=== PATIENT | male | born 1940 | race Caucasian/White ===

== ENCOUNTER → 2018-04-03 | Outpatient (CLI) | payer MEDICARE, OTHER ==
[~2018-04-03] MED LIST: ACET-1600 PO; ACET-1757 PO; ACET650S12 PR; AMIO200T42 PO; AMIO400T5 PO; APIX5TAB PO; ASPI-515 PO; ATOR20TA37 PO; ATOR40TA78 PO; ATROVASTATIN PO; BISA10SU2 PR; BISA5TAB5 PO; CALC-534 PO; CALC-55 PO; CARV-39 PO; CARV25TA12 PO; CHLO25TA PO; CLON0.1T22 PO; DEXT15LI43 PO; DOCU100T3 PO; ENOX40SY4 SQ; FURO-93 PO; FURO40TA6 PO; GLUC1VIA4 IM; HYDR-3245 PO; HYDR-3343 PO; ISOS60TA36 PO; LOSA100T14 PO; LOSA1TAB22 PO; LOSA50TA14 PO; METO10TA2 PO; METO10TA82 PO; METO50TA82 PO; Metoprolol PO; ONDA4TAB7 PO; PANT40TA5 PO; POTA20TA14 PO; POTA20TA89 PO; RIVA15TA PO; TORS20TA PO; TORS20TA2 PO; TRAM50TA2 PO; Tramadol PO; VALS1TAB28 PO; WARF2.5T32 PO; WARF4TAB65 PO; [UNRECOGNIZED DRUG - REMARK] PO; eliquis PO
[2018-04-03 13:30] LABS: ALANINE AMINOTRANSFERASE 18 U/L (12-78); ALBUMIN 3.6 g/dL (3.4-5.0); ANION GAP 9 mmol/L (5-15); CALCIUM 9.1 mg/dL (8.5-10.1); CHLORIDE 102 mmol/L (98-107); CREATININE 1.86 mg/dL (0.7-1.3)
[2018-04-03 13:32] LABS: ALKALINE PHOSPHATASE 73 U/L (45-117); BILIRUBIN,TOTAL 0.6 mg/dL (0.2-1.0); TOTAL PROTEIN 7.9 g/dL (6.4-8.2)
== END | disposition home or self-care (01) ==
LOC: STAR 11:55
PROVIDERS: ATTEND Orthopaedic Surgery
DX: Z01.818 Encounter for other preprocedural examination (principal); M19.011 Primary osteoarthritis, right shoulder
CPT/HCPCS: 36415; 80053; 87081; 93005

== ENCOUNTER 2018-04-18 12:03 | Inpatient (IN) | payer MEDICARE, OTHER ==
[2018-04-03 12:30] VITALS: BP 145/105
[~2018-04-18] VITALS: Ht 182.9 cm; Wt 131.0 kg
[~2018-04-18 12:03] MED LIST changes: +FENTANYL PF 100 MCG/2ML ONE; +MIDAZOLAM 1 MG/ML, 2ML ONE
[2018-04-18] MEDS ORDERED: LACTATED RINGERS 1,000 ML IV SCH (12:17)
[2018-04-18] MEDS ORDERED: ONDANSETRON ODT 8 MG PO ONE (12:30)
[2018-04-18] MEDS ORDERED: ACETAMINOPHEN 500 MG TABLET PO ONE (12:30)
[2018-04-18] MEDS: D5%-0.45% NACL 1,000 ML IV SCH (12:34)
[2018-04-18] MEDS ORDERED: PHENYLEPHRINE 10 MG/ML ONE (12:45)
[2018-04-18] MEDS ORDERED: CLINDAMYCIN 150 MG/ML, 6ML ONE (12:45)
[2018-04-18] MEDS ORDERED: BISACODYL 10 MG SUPP PR PRN (13:00)
[2018-04-18] MEDS ORDERED: ACETAMINOPHEN 325 MG TABLET PO PRN (13:00)
[2018-04-18] MEDS ORDERED: HYDROmorphone 1 MG/ML, 1ML IV PRN (13:00)
[2018-04-18] MEDS ORDERED: MAGNESIUM HYDROXIDE 8%, 30ML UDC PO PRN (13:00)
[2018-04-18] MEDS ORDERED: HYDROcodone/APAP 10/325 MG TABLET PO PRN (13:00)
[2018-04-18] MEDS ORDERED: KETOROLAC 30 MG/1 ML IV SCH (13:00)
[2018-04-18] MEDS: CEFAZOLIN PMX 2GM/50ML 50 ML IVPB SCH ×2 (13:00→20:50)
[2018-04-18] MEDS ORDERED: ONDANSETRON 2MG/ML, 2ML IV PRN ×2 (13:00→15:30)
[2018-04-18] MEDS ORDERED: SENNA/DOCUSATE TABLET PO PRN (13:00)
[2018-04-18] MEDS ORDERED: BUPIVACAINE/PF 0.25% ONE (13:34)
[2018-04-18] MEDS ORDERED: DEXAMETHASONE 4 MG/ML, 1ML ONE (13:35)
[2018-04-18] MEDS ORDERED: ROCURONIUM 10MG/ML,5ML ONE (13:35)
[2018-04-18] MEDS ORDERED: NEOSTIGMINE 1 MG/ML, 10ML ONE (13:35)
[2018-04-18] MEDS ORDERED: PROPOFOL 10 MG/ML, 20ML ONE (13:35)
[2018-04-18] MEDS ORDERED: GLYCOPYRROLATE 0.2MG/1ML, 5ML ONE (13:35)
[2018-04-18] MEDS ORDERED: SUCCINYLCHOLINE 20 MG/ML, 10ML ONE (13:35)
[2018-04-18] MEDS ORDERED: LIDOCAINE-MPF 2% ,5ML ONE (13:35)
[2018-04-18] MEDS ORDERED: CEFAZOLIN 1,000 MG ONE (13:35)
[2018-04-18] MEDS ORDERED: KETOROLAC 30 MG/1 ML ONE (15:02)
[2018-04-18] MEDS: FENTANYL PF 100 MCG/2ML IV PRN ×2 (15:21→15:28)
[2018-04-18] MEDS ORDERED: OXYcodone 5 MG/5 ML ORAL.SOL UDC PO PRN (15:30)
[2018-04-18] MEDS ORDERED: ALBUTEROL/IPRATROPIUM 2.5MG/0.5MG, 3 ML NPPB PRN (15:30)
[2018-04-18] MEDS ORDERED: HYDROmorphone 2 MG/ML, 1ML IVPush PRN (15:30)
[2018-04-18] MEDS ORDERED: PROMETHAZINE 25 MG/ML, 1ML IV PRN (15:30)
[2018-04-18] MEDS ORDERED: METOPROLOL 1 MG/ML, 5ML IV PRN (15:30)
[2018-04-18] MEDS ORDERED: hydrALAzine 20 MG/ML, 1ML IV PRN (15:30)
[2018-04-18 19:07] VITALS: BP 101/64
[2018-04-18] MEDS: APIXABAN 5 MG TABLET PO SCH (20:47)
[2018-04-18] MEDS: DOCUSATE 100 MG CAPSULE PO SCH (20:47)
[2018-04-18] MEDS: CARVEDILOL 25 MG TABLET PO SCH (20:49)
[2018-04-18] MEDS ORDERED: ATORVASTATIN 20 MG TABLET PO SCH (21:00)
[2018-04-18] MEDS: KETOROLAC 30 MG/1 ML IV SCH (22:59)
[2018-04-19 00:33] VITALS: BP 100/66
[2018-04-19] MEDS: D5%-0.45% NACL 1,000 ML IV SCH (01:01)
[2018-04-19 04:32] VITALS: BP 108/68
[2018-04-19] MEDS: CEFAZOLIN PMX 2GM/50ML 50 ML IVPB SCH (04:38)
[2018-04-19] MEDS ORDERED: KETOROLAC 30 MG/1 ML ONE (06:26)
[2018-04-19] MEDS: KETOROLAC 30 MG/1 ML IV SCH (06:29)
[2018-04-19 07:30] VITALS: BP 126/82
[2018-04-19] MEDS ORDERED: TORSEMIDE 20 MG TABLET PO SCH (09:00)
[2018-04-19] MEDS ORDERED: POTASSIUM CHLORIDE 20 MEQ TAB.ER.PRT PO SCH (09:00)
[2018-04-19] MEDS ORDERED: MULTIVITAMINS/MINERALS TABLET PO SCH (09:00)
[2018-04-19] MEDS: CARVEDILOL 25 MG TABLET PO SCH (09:41)
[2018-04-19] MEDS: APIXABAN 5 MG TABLET PO SCH (09:44)
[2018-04-19] MEDS: DOCUSATE 100 MG CAPSULE PO SCH (09:44)
== END 2018-04-19 10:50 | disposition home or self-care (01) | DRG 483 ==
LOC: ORIP 12:03 → 4NOR 16:12 → DCLOUNGE 04-19 10:36
PROVIDERS: ADMIT Orthopaedic Surgery; ATTEND Orthopaedic Surgery
PROC: 3E0T3BZ Introduction of Anesthetic Agent into Peripheral Nerves and Plexi, Percutaneous Approach (ICD-10-PCS; 2018-04-18)
PROC: 0RRJ00Z Replacement of Right Shoulder Joint with Reverse Ball and Socket Synthetic Substitute, Open Approach (ICD-10-PCS; principal; 2018-04-18 14:00)
DX: M12.811 Other specific arthropathies, not elsewhere classified, right shoulder (principal); I50.22 Chronic systolic (congestive) heart failure; I13.0 Hypertensive heart and chronic kidney disease with heart failure and stage 1 through stage 4 chronic kidney disease, or unspecified chronic kidney disease; I25.10 Atherosclerotic heart disease of native coronary artery without angina pectoris; G47.33 Obstructive sleep apnea (adult) (pediatric); E78.5 Hyperlipidemia, unspecified; N18.3 Chronic kidney disease, stage 3 (moderate); E66.9 Obesity, unspecified; I48.0 Paroxysmal atrial fibrillation; I48.2 Chronic atrial fibrillation; J44.9 Chronic obstructive pulmonary disease, unspecified; J30.2 Other seasonal allergic rhinitis; Z95.1 Presence of aortocoronary bypass graft; Z88.5 Allergy status to narcotic agent; Z95.0 Presence of cardiac pacemaker; Z95.2 Presence of prosthetic heart valve; Z79.01 Long term (current) use of anticoagulants; Z68.39 Body mass index [BMI] 39.0-39.9, adult; Z85.46 Personal history of malignant neoplasm of prostate
CPT/HCPCS: C1713; C1776; G0378; J0690; J1100; J1885; J2250; J2704; J2710; J3010; J3490; Q0162; C1769; J0330; J0360; J2370; J7120

== ENCOUNTER 2018-05-28 16:26 | Emergency (ER) | payer MEDICARE, OTHER ==
[~2018-05-28] VITALS: Ht 182.9 cm; Wt 127.0 kg
[~2018-05-28 16:26] MED LIST changes: -FENTANYL PF 100 MCG/2ML ONE; -MIDAZOLAM 1 MG/ML, 2ML ONE
--- NOTE | 2018-05-28 16:58 | NUR ---
PT BRIA GONCALVES FROM MORNING START ASSISTED LIVING. PT WITH COUGH AND SHORTNESS OF BREATH X 2 DAYS. PT WENT TO [facility] TODAY AND HAD A NEGATIVE CHEST X-RAY. PT A&OX4. IV STARTED IN FIELD BY IVANNA. PT RECEIVED ALBUTEROL X3 AND 2 DUONEB TREATMENTS. PT WITH EXP WHEEZING THROUGHOUT. ASSESSMENT COMPLETED. AWAITING MD. CALL LIGHT IN REACH AND DAUGHTER AT BEDSIDE
--- NOTE | 2018-05-28 17:19 | NUR ---
EKG DONE AND PRESENTED TO
[2018-05-28 17:53] LABS: BASOPHILS # (AUTO) 0.02 x10^3/uL (0-0.1); MD NO
[2018-05-28 18:02] LABS: BASOPHILS % (AUTO) 0 % (0-1); EOSINOPHILS # (AUTO) 0.29 x10^3/uL (0-0.4); EOSINOPHILS % (AUTO) 5 % (1-7); LYMPHOCYTES # (AUTO) 1.09 x10^3/uL (1-3.4); LYMPHOCYTES % (AUTO) 19 % (22-44); MEAN CORPUSCULAR HEMOGLOBIN 30.5 pg (27.5-34.5); MEAN CORPUSCULAR HGB CONC 33.7 g/dL (33.2-36.2); MEAN CORPUSCULAR VOLUME 90.5 fL (81-97); MEAN PLATELET VOLUME 8.4 fL (7.4-10.4); MONOCYTES # (AUTO) 0.87 x10^3/uL (0.2-0.8); MONOCYTES % (AUTO) 15 % (2-9); NEUTROPHILS # (AUTO) 3.62 x10^3/uL (1.8-6.8); NEUTROPHILS % (AUTO) 62 % (42-75); PLATELET COUNT 176 x10^3/uL (130-400)
[2018-05-28 18:15] LABS: ALBUMIN 3.5 g/dL (3.4-5.0); ANION GAP 6 mmol/L (5-15); CALCIUM 9.3 mg/dL (8.5-10.1); CHLORIDE 106 mmol/L (98-107); CREATININE 1.64 mg/dL (0.7-1.3)
[2018-05-28 18:17] LABS: RAPID INFLUENZA A Negative (Negative); RAPID INFLUENZA B Negative (Negative)
--- NOTE | 2018-05-28 18:41 | NUR ---
MD AT BEDSIDE TALKING WITH PT
[2018-05-28 18:52] VITALS: BP 142/91
--- NOTE | 2018-05-28 18:54 | NUR ---
PT WILL HAVE A BREATHING TREATMENT PRIOR TO DISCHARGE
[2018-05-28] MEDS ORDERED: ALBUTEROL/IPRATROPIUM 2.5MG/0.5MG, 3 ML NPPB ONE (19:00)
--- NOTE | 2018-05-28 19:35 | NUR ---
PT DISCHARGED WITH DISCHARGE INSTRUCTIONS AND FOLLOW UP INSTRUCTIONS. PT DISCHARGED VIA W/C TO HOME
== END 2018-05-28 19:37 | disposition home or self-care (01) ==
LOC: ED 19:18
DX: J20.8 Acute bronchitis due to other specified organisms (principal); B34.9 Viral infection, unspecified; I48.91 Unspecified atrial fibrillation; Z95.0 Presence of cardiac pacemaker; Z79.899 Other long term (current) drug therapy
CPT/HCPCS: 36415; 74021; 80048; 82040; 85025; 87400; 93005; 94640; 99284; J7512; J7620

== ENCOUNTER → 2018-06-07 | Outpatient (CLI) | payer MEDICARE, OTHER | END | disposition home or self-care (01) | LOC: CFH 10:29 | PROVIDERS: ATTEND Internal Medicine | DX: K63.89 Other specified diseases of intestine (principal) | CPT/HCPCS: 74021 ==

== ENCOUNTER 2018-08-16 08:28 | Outpatient (CLI) | payer MEDICARE, OTHER | END 2018-08-16 23:59 | disposition home or self-care (01) | LOC: CVU 08:28 | PROVIDERS: ATTEND Internal Medicine Cardiovascular Disease | DX: I08.8 Other rheumatic multiple valve diseases (principal); E78.5 Hyperlipidemia, unspecified; I11.9 Hypertensive heart disease without heart failure; I48.91 Unspecified atrial fibrillation; Z95.2 Presence of prosthetic heart valve | CPT/HCPCS: 93306 ==